=== PATIENT | male | born 1970 | race Two or more races ===

== ENCOUNTER 2018-05-25 08:02 | Day surgery (SDC) | payer OTHER ==
[2018-05-25 09:56] LABS: BASOPHILS # (AUTO) 0.1 /CMM (0.0-0.2); BASOPHILS % (AUTO) 0.9 % (0.0-2.0); EOSINOPHILS % (AUTO) 3.3 % (0.0-6.0); HEMATOCRIT 37 % (39-51); HEMOGLOBIN 12.4 g/dL (13.5-17.5); LYMPHOCYTES # (AUTO) 1.7 /CMM (0.8-4.8); MEAN CORPUSCULAR HGB CONC 34 g/dl (31.0-36.0); MEAN CORPUSCULAR VOLUME 87 fL (80-96); MONOCYTES # (AUTO) 0.4 /CMM (0.1-1.30); NEUTROPHILS % (AUTO) 73.8 % (43.0-81.0); PLATELET COUNT (AUTO) 287 /CMM (150-450); RED BLOOD CELL COUNT(AUTO) 4.23 MIL/uL (4.5-6.0); WHITE BLOOD COUNT (AUTO) 9.5 K/uL (4.3-11.0)
[2018-05-25 10:03] LABS: CALCIUM, SERUM 8.8 mg/dL (8.5-10.1); CREATININE 1.7 mg/dL (0.6-1.3); POTASSIUM 4.4 mmol/L (3.5-5.1)
[2018-05-25] MEDS ORDERED: FENTANYL PF 100MCG/2ML AMPUL ONE ×2 (11:01→13:28)
[2018-05-25] MEDS ORDERED: MIDAZOLAM HCL 2 MG/2ML VIAL ONE (11:01)
[2018-05-25] MEDS ORDERED: FAMOTIDINE/PF INJ 20 MG/2 ML VIAL IV ONE (11:02)
[2018-05-25] MEDS ORDERED: ROCURONIUM BROMIDE 50 MG/5 ML ONE (11:02)
[2018-05-25] MEDS ORDERED: METOCLOPRAMIDE HCL 10 MG/2 ML VIAL ONE ×2 (11:03→14:28)
[2018-05-25] MEDS ORDERED: BUPIVACAINE 0.25% 75 MG/30 ML VIAL ONE (11:03)
[2018-05-25] MEDS ORDERED: LIDOCAINE HCL/PF 1% 30 ML SDV ONE (11:08)
[2018-05-25] MEDS ORDERED: GLYCOPYRROLATE 0.2 MG/ML VIAL ONE (11:11)
[2018-05-25] MEDS ORDERED: MEPERIDINE HCL/PF 100 MG/ML DISP.SYRIN ONE (13:45)
[2018-05-25] MEDS ORDERED: HYDROCODONE/APAP 5/325MG 1 EACH TABLET ONE (14:38)
== END 2018-05-25 15:23 | disposition home or self-care (01) ==
LOC: DS 08:02 → EDBD 08:02 → DS 15:23
PROVIDERS: ATTEND Specialist
DX: M75.102 Unspecified rotator cuff tear or rupture of left shoulder, not specified as traumatic (principal); M75.42 Impingement syndrome of left shoulder; M65.812 Other synovitis and tenosynovitis, left shoulder; E11.22 Type 2 diabetes mellitus with diabetic chronic kidney disease; I12.9 Hypertensive chronic kidney disease with stage 1 through stage 4 chronic kidney disease, or unspecified chronic kidney disease; N18.9 Chronic kidney disease, unspecified
CPT/HCPCS: 36415; 80048-TC; 82962-TC; 85025-TC; 85610-TC; 85730-TC; 88304-TC; 88311-TC; A4217; A4565; J0690; J2175; J2250; J2405; J2710; J2765; J3010; J3490; J7050; Z7610